=== PATIENT | male | born 1990 | race Hispanic/Latino ===

== ENCOUNTER 2019-10-09 06:08 | Emergency (ER) | payer SELFPAY ==
[2019-10-09 06:32] LABS: #Basophils 0.1 thou/uL (0.0-0.2); #Eosinphils 0.3 thou/uL (0.0-0.7); #Lymphocytes 2.6 thou/uL (1.20-3.40); #Monocytes 0.7 thou/uL (0.11-0.59); #Neutrophils 5.5 thou/uL (1.40-6.50); %Basophils 1.1 % (0.0-1.0); %Eosinophils 3.7 % (0.0-10.0); %Lymphocytes 28.4 % (21.0-51.0); %Monocytes 7.5 % (0.0-10.0); %Neutrophils 59.4 % (42.0-75.0); Hemoglobin 16.1 g/dL (14.0-18.0); Mean Corpuscular HGB CONC 30.5 g/dL (32.0-36.0); Mean Corpuscular Hemoglobin 28.4 pg (27.0-31.0); Mean Platelet Volume 7.2 fL (7.4-10.4); Platelet Count 327 thou/uL (130-400); RBC Distribution Width 11.8 % (11.5-14.5); Red Blood Cell (RBC) Count 5.66 mill/uL (4.70-6.10); White Blood Cell (WBC) Count 9.3 thou/uL (4.8-10.8)
[2019-10-09] MEDS ORDERED: Mag-Al Plus 1200 MG/1200 MG/120 MG/30 ML UDCUP ONE (06:36)
[2019-10-09] MEDS ORDERED: Lidocaine Viscous Sol 2% 15 ml UD Cup ONE (06:36)
[2019-10-09] MEDS ORDERED: Aspirin Chewable 81 MG TAB ONE (06:36)
[2019-10-09] MEDS ORDERED: Famotidine In NaCl 20 mg/50 ml Premix Bag ONE (06:37)
[2019-10-09] MEDS ORDERED: Sodium Chloride 0.9% 100 ML BAG ONE (06:54)
[2019-10-09 07:13] LABS: Albumin 4.5 g/dL (3.5-5.0); Anion Gap 12 mmol/L (10-20); Calcium 8.7 mg/dL (7.8-10.44); Carbon Dioxide 27 mmol/L (22-29); Chloride 104 mmol/L (98-107); Globulin 2.4 g/dL (2.4-3.5); Glucose 95 mg/dL (70-105); Potassium 4.4 mmol/L (3.5-5.1); Protein, Total 6.9 g/dL (6.0-8.3); Sodium 139 mmol/L (136-145)
[2019-10-09] MEDS ORDERED: Morphine 4 MG/ML VIAL ONE (07:40)
[2019-10-09] MEDS ORDERED: Sodium Chloride 0.9% 1,000 ML ONE (07:40)
[2019-10-09] MEDS ORDERED: Promethazine HCl 25 MG/ML VIAL ONE (07:40)
--- NOTE | 2019-10-09 08:22 | RAD ---
TWO VIEWS OF THE CHEST: COMPARISON: None. HISTORY: Chest pain and shortness of breath. FINDINGS: Two views of the chest show normal sized cardiomediastinal silhouette. There is no evidence of consol idation, mass, or pleural effusion. The bones are unremarkable. IMPRESSION: No evidence of acute cardiopulmonary disease. POS: [facility]
--- NOTE | 2019-10-09 08:36 | CT ---
CT arteriogram chest with IV contrast and 3-D imaging CT arteriogram abdomen with IV contrast and 3-D imaging CT arteriogram pelvis with IV contrast and 3-D imaging HISTORY: Chest and abdomen pain with radiation to back and pelvis. FINDINGS: There is good contrast opacification of the pulmonary arteries and aorta with normal branch ing great vessels at the aortic arch. No evidence of intimal flap or dissection. No adjacent fluid. Lungs have a normal appearance. No mediastinal adenopathy. Visceral arteries of the abdomen and pelvis are patent. Proximal bifurcation of the right renal arter y. Arteriographic imaging was carried out to the level of the mid femoral heads. External iliac arteries are patent. No evidence of bowel obstruction. Nonspecific medium segment area of the fecalized material within th e distal small bowel is noted but is of doubtful clinical significance given the lack of more proximal bowel dilatation or bowel inflammation. IMPRESSION: No evidence of aortic dissection or other acute abnormalities.
[2019-10-09] MEDS ORDERED: Iopamidol 370 76% 125 ML VIAL FS ONE (10:05)
[2019-10-09 10:56] LABS: Alkaline Phosphatase 78 U/L (40-110); BUN (Urea Nitrogen) 18 mg/dL (8.9-20.6); Bilirubin, Total 0.3 mg/dL (0.2-1.2); Calc. Creatinine Clearance 0 mL/min (70-130); Estimated GFR-MDRD Greater than 90; Lipase 28 U/L (8-78)
== END 2019-10-09 08:55 | disposition home or self-care (01) ==
LOC: MADERS 06:08
DX: K29.70 Gastritis, unspecified, without bleeding (principal); F17.210 Nicotine dependence, cigarettes, uncomplicated
CPT/HCPCS: 71046; 71275; 72191; 74175; 80053; 82247; 83690; 83880; 84075; 84484; 85025; 85379; 85652; 86140; 93005; 96365; 96367; 96375; J2270; J2550; J3490; J7050; Q9967

== ENCOUNTER 2019-10-31 23:04 | Emergency (ER) | payer SELFPAY ==
[2019-10-31] MEDS ORDERED: Lidocaine Viscous Sol 2% 15 ml UD Cup ONE (23:51)
[2019-10-31] MEDS ORDERED: Ondansetron ODT 4 MG TAB ONE (23:51)
[2019-10-31] MEDS ORDERED: Mag-Al Plus 1200 MG/1200 MG/120 MG/30 ML UDCUP ONE (23:51)
[2019-10-31 23:59] LABS: #Basophils 0.1 thou/uL (0.0-0.2); #Eosinphils 0.2 thou/uL (0.0-0.7); #Neutrophils 13.6 thou/uL (1.40-6.50); %Basophils 0.5 % (0.0-1.0); %Eosinophils 1.1 % (0.0-10.0); %Lymphocytes 11.7 % (21.0-51.0); %Monocytes 5.9 % (0.0-10.0); %Neutrophils 80.7 % (42.0-75.0); Hemoglobin 13.9 g/dL (14.0-18.0); Mean Corpuscular HGB CONC 31.9 g/dL (32.0-36.0); Mean Corpuscular Hemoglobin 28.8 pg (27.0-31.0); Mean Corpuscular Volume 90.1 fL (78.0-98.0); Mean Platelet Volume 7.8 fL (7.4-10.4); Platelet Count 258 thou/uL (130-400); RBC Distribution Width 11.7 % (11.5-14.5); Red Blood Cell (RBC) Count 4.84 mill/uL (4.70-6.10); White Blood Cell (WBC) Count 16.9 thou/uL (4.8-10.8)
[2019-11-01 00:20] LABS: ALT (SGPT) 26 U/L (8-55); AST (SGOT) 17 U/L (5-34); Albumin 4.2 g/dL (3.5-5.0); Alkaline Phosphatase 98 U/L (40-110); Anion Gap 13 mmol/L (10-20); BUN (Urea Nitrogen) 13 mg/dL (8.9-20.6); Bilirubin, Total 0.2 mg/dL (0.2-1.2); Calc. Creatinine Clearance 0 mL/min (70-130); Calcium 9.3 mg/dL (7.8-10.44); Carbon Dioxide 28 mmol/L (22-29); Chloride 105 mmol/L (98-107); Estimated GFR-MDRD Greater than 90; Globulin 2.8 g/dL (2.4-3.5); Glucose 104 mg/dL (70-105); Lipase 10 U/L (8-78); Potassium 3.8 mmol/L (3.5-5.1); Sodium 142 mmol/L (136-145)
== END 2019-11-01 00:55 | disposition home or self-care (01) ==
LOC: MADERS 23:04
DX: K29.70 Gastritis, unspecified, without bleeding (principal); R11.2 Nausea with vomiting, unspecified; F17.210 Nicotine dependence, cigarettes, uncomplicated
CPT/HCPCS: 80053; 83605; 83690; 85025; 93005; Q0162